=== PATIENT | male | born 1990 | race American Indian/Alaskan Native ===

== ENCOUNTER 2018-08-17 21:02 | Emergency (ER) | payer SELFPAY ==
[2018-08-17] MEDS ORDERED: CATAPRES ONE (21:24)
[2018-08-17] MEDS ORDERED: CATAPRES PO ONE (21:24)
[2018-08-17] MEDS ORDERED: APRESOLINE IV ONE (23:50)
[2018-08-17] MEDS ORDERED: TYLENOL #3 PO ONE (23:50)
--- NOTE | 2018-08-18 00:25 | Emergency Department Report ---
HPI - General Chief Complaint: High BP Time Seen by Provider: 08/17/18 23:04 - HPI HPI: The patient is a 28 yo male with a significant history of uncontrolled hypertension, who presents for evaluation of headache. The patient reports mild achy generalized headache for the past one day, exacerbated with position changes, improved with rest. The patient denies fever, head injury, neck pain, neck stiffness, chest pain, dyspnea, vision or hearing changes, smell or taste changes, paresthesias, facial drooping, slurred speech, seizure-like activity, urine or bowel incontinence or retention, or other focal neurological deficit. ED Past Medical Hx - Past Medical History Previous Medical History?: No - Surgical History Past Surgical History?: No - Social History Smoking Status: Never Smoker Substance Use Type: None - Medications Home Medications: Home Medications Medication Instructions Recorded Confirmed Last Taken Type amLODIPine [Norvasc] 5 mg PO DAILY #31 tab 08/18/18 Unknown Rx hydroCHLOROthiazide [HCTZ] 25 mg PO QDAY #30 tablet 08/18/18 Unknown Rx ED Review of Systems ROS: Stated complaint: HIGH B/P Other details as noted in HPI Constitutional: denies: fever ENT: denies: throat or neck pain Respiratory: denies: cough, shortness of breath Cardiovascular: denies: chest pain Endocrine: denies unexplained weight loss or gain Gastrointestinal: denies: abdominal pain, nausea Genitourinary: denies: dysuria Musculoskeletal: denies: leg swelling Skin: denies: rash Neurological: reports: headache Hematological/Lymphatic: denies: easy bleeding or easy bruising Psych: denies sadness or hopelessness Physical Exam - Physical Exam Vital Signs: Vital Signs 08/17/18 08/17/18 08/17/18 21:15 21:18 21:25 Temperature 99.1 F Pulse Rate 88 88 Respiratory 18 Rate Blood Pressure 222/138 222/138 Blood Pressure 236/155 [Right] O2 Sat by Pulse 98 Oximetry Physical Exam: General: well-nourished, well-developed, no acute distress Head: Normocephalic, atraumatic Eyes: normal sclera ENT: Mucous membranes are pink and moist Neck: trachea midline, neck supple, No neck stiffness, no cervical adenopathy Respiratory: Breath sounds equal bilaterally, no wheezing, rales, or rhonchi Cardio: S1 and S2 present, no murmurs, rubs, gallops, capillary refill is brisk Abdomen: Normoactive bowel sounds, soft abdomen, no rigidity, no guarding or rebound tenderness Chest WALL/Back: No tenderness to palpation of the chest wall, no CVA tenderness with percussion Musc: No pitting edema Skin: No rash Neuro: alert oriented x4, normal cognition, speech normal, PERRL, EOM intact, no facial drooping, no uvula or tongue deviation on protrusion, no deficit with rotation of neck or shoulder shrug, no obvious gross motor deficit in the upper or lower extremities with flexion or extension at the shoulder, elbow, wrist, hip, knee, or ankle bilaterally, no obvious gross sensation deficit to crude touch or 2 pt discrimination, 2+ symmetric reflexes on DTR testing, no coordination deficit with [id number] or [id number] testing, Babinski downgoing, romberg negative, patient able to to ambulate without abnormal gait Psych: Normal affect ED Course Vital Signs 08/17/18 08/17/18 08/17/18 21:15 21:18 21:25 Temperature 99.1 F Pulse Rate 88 88 Respiratory 18 Rate Blood Pressure 222/138 222/138 Blood Pressure 236/155 [Right] O2 Sat by Pulse 98 Oximetry ED Medical Decision Making - Medical Decision Making The patient was seen and examined by myself. The patient is placed on a vp revenue cycle and continuous pulse ox. On initial evaluation, the patient was found to be in no distress. Evaluation orders were placed. The patient was offered pain medicine for his headache and he refuses. The patient is given IV hydralazine for his elevated blood pressure. CT scan the head is negative for acute intracranial disease process. On reexamination the patient's blood pressure was found to decrease outside of range concerning for hypertensive emergency. The patient is stable for discharge with outpatient follow-up. The patient is given follow-up and return instructions. The patient expressed understanding and agreed with the plan. The patient is discharged in stable condition. Critical care attestation.: If time is entered above; I have spent that time in minutes in the direct care of this critically ill patient, excluding procedure time. ED Disposition Clinical Impression: Acute non intractable tension-type headache, Hypertensive urgency Disposition: - TO HOME OR SELFCARE Is pt being admited?: No Does the pt Need Aspirin: No Condition: Stable Instructions: Chronic Hypertension (ED), Hypertensive Crisis (ED) Referrals: PRIMARY CARE, [Primary Care Provider] - 3-5 Days [facility] [Outside] - 3-5 Days Time of Disposition: 00:26
[2018-08-18 01:30] VITALS: BP 151/80
== END 2018-08-18 01:39 | disposition home or self-care (01) ==
LOC: ED 21:02
DX: I16.0 Hypertensive urgency (principal)
CPT/HCPCS: 70450; 96374; 99284; J0360